=== PATIENT | male | born 1955 | race Caucasian/White ===

== ENCOUNTER 2020-06-23 10:21 | Emergency (ER) | payer BC ==
[~2020-06-23] VITALS: Ht 188 cm; Wt 133.4 kg
[2020-06-23] MEDS ORDERED: HYDROCODONE/APAP 7.5MG-325MG 1 EA TAB PO ONE (10:45)
== END 2020-06-23 12:16 | disposition home or self-care (01) ==
LOC: ER 11:11
DX: S52.501A Unspecified fracture of the lower end of right radius, initial encounter for closed fracture (principal); W11.XXXA Fall on and from ladder, initial encounter; Y92.008 Other place in unspecified non-institutional (private) residence as the place of occurrence of the external cause; E11.9 Type 2 diabetes mellitus without complications; E78.5 Hyperlipidemia, unspecified
CPT/HCPCS: 99283